=== PATIENT | male | born 1995 | race Caucasian/White ===

== ENCOUNTER 2017-06-11 19:16 | Emergency (ER) | payer SELFPAY ==
[~2017-06-11] VITALS: Ht 177.8 cm; Wt 68.0 kg
[~2017-06-11 19:16] MED LIST: ADDEROL; AMPH30TA2 PO
[2017-06-11 19:45] LABS: HEMATOCRIT 40.8 % (39.2-51.8); HEMOGLOBIN 13.7 g/dL (13.7-18.0); WHITE BLOOD COUNT 10.6 x10^3/uL (3.4-10)
[2017-06-11 19:56] LABS: BLOOD UREA NITROGEN 12 mg/dL (7-18)
[2017-06-12 01:16] VITALS: BP 122/68
== END 2017-06-12 01:28 | disposition home or self-care (01) ==
LOC: ED 19:50
DX: R41.82 Altered mental status, unspecified (principal); S09.90XA Unspecified injury of head, initial encounter; Y04.8XXA Assault by other bodily force, initial encounter
CPT/HCPCS: 36415; 70450; 70486; 80048; 80307; 82040; 85025; 99285; G0479

== ENCOUNTER 2017-06-12 11:25 | Emergency (ER) | payer OTHER ==
[~2017-06-12] VITALS: Ht 177.8 cm; Wt 63.2 kg
[2017-06-12 11:27] VITALS: BP 117/79
[2017-06-12] MEDS ORDERED: ACETAMINOPHEN 500 MG TABLET PO ONE (12:30)
[2017-06-12] MEDS ORDERED: ACETAMINOPHEN 500 MG TABLET ONE (12:48)
== END 2017-06-12 13:27 | disposition home or self-care (01) ==
LOC: ED 12:48
DX: S06.0X0A Concussion without loss of consciousness, initial encounter (principal); S00.83XA Contusion of other part of head, initial encounter; Y04.8XXA Assault by other bodily force, initial encounter; Y93.89 Activity, other specified; Y99.8 Other external cause status; Y92.89 Other specified places as the place of occurrence of the external cause
CPT/HCPCS: 99282

== ENCOUNTER 2017-07-21 00:36 | Emergency (ER) | payer SELFPAY ==
[~2017-07-21] VITALS: Ht 177.8 cm; Wt 77.4 kg
[2017-07-21] MEDS ORDERED: ONDANSETRON 2MG/ML, 2ML ONE (00:47)
[2017-07-21 01:08] LABS: BASOPHILS # (AUTO) 0.03 x10^3/uL (0-0.1); BASOPHILS % (AUTO) 0 % (0-1); EOSINOPHILS # (AUTO) 0.02 x10^3/uL (0-0.4); EOSINOPHILS % (AUTO) 0 % (1-7); LYMPHOCYTES # (AUTO) 1.22 x10^3/uL (1-3.4); LYMPHOCYTES % (AUTO) 19 % (22-44); MD NO; MEAN CORPUSCULAR HEMOGLOBIN 29.4 pg (27.5-34.5); MEAN CORPUSCULAR HGB CONC 33.7 g/dL (33.2-36.2); MEAN CORPUSCULAR VOLUME 87.3 fL (81-97); MEAN PLATELET VOLUME 7.4 fL (7.4-10.4); MONOCYTES # (AUTO) 0.59 x10^3/uL (0.2-0.8); MONOCYTES % (AUTO) 9 % (2-9); NEUTROPHILS # (AUTO) 4.64 x10^3/uL (1.8-6.8); NEUTROPHILS % (AUTO) 72 % (42-75); PLATELET COUNT 211 x10^3/uL (130-400); RED BLOOD COUNT 4.59 x10^6/uL (4.38-5.82); RED CELL DISTRIBUTION WIDTH 13.3 % (9.4-14.8)
[2017-07-21 01:18] LABS: ANION GAP 10 mmol/L (5-15); CALCIUM 8.1 mg/dL (8.5-10.1); CHLORIDE 108 mmol/L (98-107); CREATININE 1.01 mg/dL (0.7-1.3)
[2017-07-21 01:20] LABS: ACETAMINOPHEN < 2 mcg/mL (10-30); SALICYLATE LEVEL < 1.7 mg/dL (2.8-20.0)
[2017-07-21] MEDS ORDERED: ONDANSETRON 2MG/ML, 2ML IVPush ONE (01:30)
[2017-07-21 05:03] VITALS: BP 109/63
== END 2017-07-21 05:07 | disposition home or self-care (01) ==
LOC: ED 04:40
DX: T42.4X1A Poisoning by benzodiazepines, accidental (unintentional), initial encounter (principal); F10.129 Alcohol abuse with intoxication, unspecified; G93.41 Metabolic encephalopathy; Y92.89 Other specified places as the place of occurrence of the external cause; Y90.0 Blood alcohol level of less than 20 mg/100 ml
CPT/HCPCS: 36415; 80048; 80307; 80329; 85025; 96374; 99284; J2405; G0479; G0480

== ENCOUNTER 2018-01-31 10:23 | Emergency (ER) | payer SELFPAY ==
[~2018-01-31] VITALS: Ht 177.8 cm; Wt 66.0 kg
[2018-01-31 10:31] VITALS: BP 110/54
[2018-01-31] MEDS ORDERED: LIDOCAINE-MPF 2% ,5ML ONE (10:56)
[2018-01-31] MEDS ORDERED: LIDOCAINE 2%, 20ML SQ ONE (11:00)
[2018-01-31] MEDS ORDERED: BACITRACIN ZINC OINT 500U/GM, 0.9 GM ONE (11:39)
== END 2018-01-31 11:59 | disposition home or self-care (01) ==
LOC: ED 10:40
DX: S41.112A Laceration without foreign body of left upper arm, initial encounter (principal); S51.812A Laceration without foreign body of left forearm, initial encounter; X58.XXXA Exposure to other specified factors, initial encounter; Y93.89 Activity, other specified; Y92.009 Unspecified place in unspecified non-institutional (private) residence as the place of occurrence of the external cause; Y99.8 Other external cause status
CPT/HCPCS: 12032; 73070; 99285; J3490

== ENCOUNTER 2018-02-02 02:57 | Emergency (ER) | payer SELFPAY ==
[~2018-02-02] VITALS: Ht 172.7 cm; Wt 67.3 kg
[2018-02-02 02:58] VITALS: BP 100/63
== END 2018-02-02 03:38 | disposition home or self-care (01) ==
LOC: ED 03:35
DX: S41.112D Laceration without foreign body of left upper arm, subsequent encounter (principal); X58.XXXD Exposure to other specified factors, subsequent encounter
CPT/HCPCS: 99281

== ENCOUNTER 2018-02-10 13:29 | Emergency (ER) | payer SELFPAY ==
[~2018-02-10] VITALS: Ht 177.8 cm; Wt 66.1 kg
[2018-02-10 13:43] VITALS: BP 122/52
== END 2018-02-10 14:18 | disposition home or self-care (01) ==
LOC: ED 14:15
DX: S41.112D Laceration without foreign body of left upper arm, subsequent encounter (principal); X58.XXXD Exposure to other specified factors, subsequent encounter
CPT/HCPCS: 99282

== ENCOUNTER 2019-01-10 09:25 | Emergency (ER) | payer SELFPAY ==
[~2019-01-10] VITALS: Ht 175.3 cm; Wt 65.4 kg
--- NOTE | 2019-01-10 09:54 | NUR ---
PT STATES GENERAL RIGHT TESTICULAR DISCOMFORT DEVELOPED YESTERDAY AFTER LIFTING WEIGHTS. PT LATER NOTED BLOOD IN SEMEN. TODAY RIGHT TESTICULAR PAIN INCREASING
[2019-01-10] MEDS ORDERED: SODIUM CHLORIDE FLUSH 10ML SYR IVF ONE (10:00)
[2019-01-10] MEDS ORDERED: MORPHINE SULFATE 4 MG/ML, 1ML IVPush PRN (10:00)
[2019-01-10] MEDS ORDERED: ONDANSETRON 2MG/ML, 2ML IVPush ONE (10:00)
[2019-01-10 10:08] LABS: BASOPHILS # (AUTO) 0.01 x10^3/uL (0-0.1); BASOPHILS % (AUTO) 0 % (0-1); EOSINOPHILS # (AUTO) 0.02 x10^3/uL (0-0.4); EOSINOPHILS % (AUTO) 0 % (1-7); LYMPHOCYTES # (AUTO) 0.99 x10^3/uL (1-3.4); LYMPHOCYTES % (AUTO) 6 % (22-44); MD NO; MEAN CORPUSCULAR HEMOGLOBIN 30.4 pg (27.5-34.5); MEAN CORPUSCULAR VOLUME 89.3 fL (81-97); MEAN PLATELET VOLUME 8.1 fL (7.4-10.4); MONOCYTES # (AUTO) 0.78 x10^3/uL (0.2-0.8); MONOCYTES % (AUTO) 5 % (2-9); NEUTROPHILS # (AUTO) 13.62 x10^3/uL (1.8-6.8); NEUTROPHILS % (AUTO) 88 % (42-75); PLATELET COUNT 263 x10^3/uL (130-400); RED BLOOD COUNT 5.31 x10^6/uL (4.38-5.82); RED CELL DISTRIBUTION WIDTH 13.6 % (9.4-14.8)
[2019-01-10 10:14] LABS: ALBUMIN 4.7 g/dL (3.4-5.0); ANION GAP 7 mmol/L (5-15); CALCIUM 9.2 mg/dL (8.5-10.1); CHLORIDE 105 mmol/L (98-107); CREATININE 1.34 mg/dL (0.7-1.3)
[2019-01-10] MEDS ORDERED: ONDANSETRON 2MG/ML, 2ML ONE (10:49)
[2019-01-10] MEDS ORDERED: MORPHINE SULFATE 4 MG/ML, 1ML ONE (10:49)
--- NOTE | 2019-01-10 11:07 | NUR ---
MEDICATED FOR PAIN. PT HAS TRIED TWICE TO URINATE BUT UNABLE TO
--- NOTE | 2019-01-10 11:38 | NUR ---
2/10 TESTICULAR PAIN. CONTINUE TO GIVE WATER TO PATIENT TO ENCOURAGE VOIDING
--- NOTE | 2019-01-10 12:16 | NUR ---
PT PREVIOUSLY STATED HE VOIDED THIS MORNING BUT NOW RECALLS IT MIGHT NOT HAVE BEEN SINCE LAST NIGHT. BLADDER SCAN 200 ML. STILL UNABLE TO VOID. MD MADE AWARE AND ORDERS RECEIVED FOR IV FLUIDS
[2019-01-10] MEDS ORDERED: SODIUM CHLORIDE 0.9% 1,000ML IVBOLUS ONE (12:30)
--- NOTE | 2019-01-10 13:01 | NUR ---
AFTER IV FLUID BOLUS COMPLETED PT ABLE TO GIVE URINE SAMPLE
[2019-01-10 13:13] LABS: CULTURE INDICATED? YES; MICROSCOPIC INDICATED
[2019-01-10] MEDS ORDERED: CEFTRIAXONE 250 MG ONE (14:24)
[2019-01-10] MEDS ORDERED: AZITHROMYCIN 500 MG TABLET ONE (14:24)
[2019-01-10] MEDS ORDERED: CEFTRIAXONE 250 MG IM ONE (14:30)
[2019-01-10] MEDS ORDERED: AZITHROMYCIN 500 MG TABLET PO ONE (14:30)
[2019-01-10 14:53] VITALS: BP 114/62
== END 2019-01-10 14:56 | disposition home or self-care (01) ==
LOC: ED 13:17
DX: N45.2 Orchitis (principal); E86.0 Dehydration
CPT/HCPCS: 36415; 76870; 80048; 81001; 82040; 85025; 87086; 87147; 87491; 87591; 96361; 96372; 96374; 96375; 99284; J0696; J2270; J2405; J7030

== ENCOUNTER 2020-06-24 18:42 | Emergency (ER) | payer MEDICAID ==
[~2020-06-24] VITALS: Ht 175.3 cm; Wt 70.7 kg
[2020-06-24 18:44] VITALS: BP 155/71
[2020-06-24] MEDS ORDERED: DIPH,PERTUSS(ACELL),TET VAC/PF 0.5 ML IM-VACC ONE ×2 (19:00→19:52)
[2020-06-24] MEDS ORDERED: LIDOCAINE-MPF 1%, 5ML INFIL ONE (19:00)
--- NOTE | 2020-06-24 19:49 | NUR ---
pt to room from lobby
[2020-06-24] MEDS ORDERED: LIDOCAINE-MPF 1%, 5ML ONE (19:52)
--- NOTE | 2020-06-24 19:57 | NUR ---
left base of thumb laceration. CMS intact. last tetanus shot 2 years ago.
[2020-06-24] MEDS ORDERED: LIDOCAINE 1%-EPI 1:100K, 20ML ONE (20:44)
[2020-06-24] MEDS ORDERED: NEOSPORIN OINT. PKT 1 PACKET ONE ×2 (21:19→21:34)
== END 2020-06-24 21:45 | disposition home or self-care (01) ==
LOC: ED 20:21
DX: S61.012A Laceration without foreign body of left thumb without damage to nail, initial encounter (principal); W25.XXXA Contact with sharp glass, initial encounter; Y93.89 Activity, other specified; Y92.009 Unspecified place in unspecified non-institutional (private) residence as the place of occurrence of the external cause; Y99.8 Other external cause status
CPT/HCPCS: 12041; 99284